=== PATIENT | female | born 1980 | race Asian ===

== ENCOUNTER 2017-03-14 11:00 | Inpatient (IN) | payer BC ==
[2017-03-14] VITALS (12 sets, daily range): BP systolic 131–146; BP diastolic 65–87; PULSE 69–100; RESP 16–18; TEMP 97.6–99.2; O2SAT 100
[2017-03-14] MEDS ORDERED: LACTATED RINGER'S 1000 ML INJ 1,000 ML IV ONE (12:02)
[2017-03-14 12:09] LABS: AUTOMATED NEUTROPHIL # 6.6 TH/MM3 (1.8-7.7); BASOPHIL % 0.2 % (0.0-2.0); EOSINOPHIL # 0.1 TH/MM3 (0-0.4); EOSINOPHIL % 0.7 % (0.0-4.0); HEMO FLAGS DIFF FINAL; LYMPH % 16.5 % (9.0-44.0); LYMPHOCYTE # 1.4 TH/MM3 (1.0-4.8); MEAN CELL VOLUME 75.3 FL (80.0-100.0); MEAN CORPUSCULAR HEMOGLOBIN 24.7 PG (27.0-34.0); MEAN CORPUSCULAR HGB CONC 32.8 % (32.0-36.0); MONO % 7.4 % (0.0-8.0); NEUT % 75.2 % (16.0-70.0); PLATELET COUNT 274 TH/MM3 (150-450); RED BLOOD COUNT 5.18 MIL/MM3 (4.00-5.30); RED CELL DISTRIBUTION WIDTH 15.5 % (11.6-17.2); WHITE BLOOD COUNT 8.7 TH/MM3 (4.0-11.0)
[2017-03-14] MEDS ORDERED: MORPHINE SULFATE PF 5 MG/10 ML VIAL ONE (12:21)
[2017-03-14] MEDS ORDERED: ONDANSETRON HCL 4 MG/2 ML VIAL ONE (12:21)
[2017-03-14] MEDS ORDERED: OXYTOCIN 10 UNIT/ML AMP ONE (12:22)
[2017-03-14 12:24] LABS: BACTERIA, URINE RARE /hpf; BLOOD, URINE NEG (NEG); COMMENT (UR) CULT NOT INDICATED; CULTURE IF INDICATED CULT NOT INDICATED; GLUCOSE,URINE NEG (NEG); KETONE, URINE NEG (NEG); MUCUS URINE FEW /lpf (OCC); NITRITE,URINE NEG (NEG); SQUAMOUS EPITHELIAL CELL URINE 1 /hpf (0-5); URINE COLOR LIGHT-YELLOW (YELLW/STRAW)
[2017-03-14] MEDS ORDERED: LACTATED RINGER'S 1000 ML INJ 1,000 ML IV SCH ×2 (12:32→18:52)
[2017-03-14] MEDS ORDERED: DICLOFENAC SODIUM 37.5 MG/ML VIAL IV PUSH ONE (13:21)
[2017-03-14] MEDS ORDERED: CITRIC ACID-SODIUM CITRATE LIQ 30 ML UDC PO SCH (13:45)
[2017-03-14] MEDS ORDERED: SIMETHICONE 80 MG CHEWABLE TAB PO PRN (14:00)
[2017-03-14] MEDS ORDERED: oxyCODONE/ACETAMINOPHEN 5 MG/325 MG TAB PO PRN (14:00)
[2017-03-14] MEDS ORDERED: OXYTOCIN 30 UNITS-500ML PREMIX 500 ML IV ONE (14:00)
[2017-03-14] MEDS ORDERED: ZOLPIDEM TARTRATE 5 MG TAB PO PRN (14:00)
[2017-03-14] MEDS ORDERED: ACETAMINOPHEN 1000 MG/100 ML VIAL IV ONE ×2 (14:00→14:49)
[2017-03-14] MEDS ORDERED: ACETAMINOPHEN 325 MG TAB PO PRN (14:00)
[2017-03-14] MEDS ORDERED: SODIUM CHLORIDE 0.9% FLUSH 10 ML FLUSH IV FLUSH PRN (14:00)
[2017-03-14] MEDS ORDERED: OXYTOCIN 30 UNITS-500ML PREMIX 500 ML ONE (14:44)
[2017-03-14] MEDS ORDERED: EPIDURAL-NALOXONE HCL 0.4 MG/ML AMP IV PRN (16:30)
[2017-03-14] MEDS ORDERED: EPIDURAL-DIPHENHYDRAMINE HCL 50 MG CAP PO PRN (16:30)
[2017-03-14] MEDS ORDERED: EPIDURAL-NO SYSTEMIC NARCOTICS PRN (16:30)
[2017-03-14] MEDS ORDERED: EPIDURAL-DIPHENHYDRAMINE HCL 50 MG/ML VIAL IV PUSH PRN (16:30)
[2017-03-14] MEDS ORDERED: EPIDURAL-DO NOT ADMINISTER ANTICOAGULANTS PRN (16:30)
[2017-03-14] MEDS: ONDANSETRON HCL 4 MG/2 ML VIAL IV PUSH PRN (18:44)
[2017-03-14] MEDS: DICLOFENAC SODIUM 37.5 MG/ML VIAL IV PUSH SCH (18:45)
[2017-03-14] MEDS ORDERED: SODIUM CHLORIDE 0.9% FLUSH 10 ML FLUSH IV FLUSH SCH (21:00)
[2017-03-15] MEDS ORDERED: OXYTOCIN 30 UNITS-500ML PREMIX 500 ML IV PRN
[2017-03-15 00:09] VITALS: BP 119/71; PULSE 68; RESP 16; TEMP 98.7
[2017-03-15] MEDS: DICLOFENAC SODIUM 37.5 MG/ML VIAL IV PUSH SCH ×2 (00:50→06:26)
[2017-03-15] MEDS: ONDANSETRON HCL 4 MG/2 ML VIAL IV PUSH PRN (00:50)
[2017-03-15 04:00] VITALS: BP 119/68; PULSE 82; RESP 14; TEMP 98.1
[2017-03-15 06:02] LABS: AUTOMATED NEUTROPHIL # 12.4 TH/MM3 (1.8-7.7); BASOPHIL % 0.1 % (0.0-2.0); EOSINOPHIL % 0.2 % (0.0-4.0); HEMATOCRIT 33.4 % (35.0-46.0); HEMO FLAGS DIFF FINAL; LYMPH % 10.8 % (9.0-44.0); LYMPHOCYTE # 1.6 TH/MM3 (1.0-4.8); MEAN CELL VOLUME 75.8 FL (80.0-100.0); MEAN CORPUSCULAR HEMOGLOBIN 24.5 PG (27.0-34.0); MEAN CORPUSCULAR HGB CONC 32.3 % (32.0-36.0); MONO % 4.5 % (0.0-8.0); NEUT % 84.4 % (16.0-70.0); PLATELET COUNT 225 TH/MM3 (150-450); RED CELL DISTRIBUTION WIDTH 15.3 % (11.6-17.2); WHITE BLOOD COUNT 14.7 TH/MM3 (4.0-11.0)
[2017-03-15 08:05] VITALS: BP 142/90; PULSE 97; RESP 18; TEMP 98.4
--- NOTE | 2017-03-15 08:05 | MP ---
cc: Cinthya EPPS DATE OF SURGERY: 03/14/17 PREOPERATIVE DIAGNOSIS 1. Intrauterine at 39-4 2. Spontaneous rupture of membranes with the cervix open 2-3 cm. 3. Transverse lie. POSTOPERATIVE DIAGNOSIS 1. Intrauterine at 39-4 2. Spontaneous rupture of membranes with the cervix open 2-3 cm. 3. Transverse lie. PROCEDURE Primary low transverse section. ANESTHESIA Spinal SURGEON MD Fidelina Gutierrez MD, R3 FINDINGS A normal female infant, Apgars 8 and 9 with a weight of 6 pounds 9 ounces. The baby was transverse lie with the head to the maternal right. It was easily pulled down to the vertex position once we were in the uterine cavity. The uterus was widely spaced fundus with the left side being a little bit larger than the right. There was no septum on the inside of the uterus, but it looked like a bicornuate uterus. The fallopian tubes were normal in length and caliber. The ovaries were normal size, shape and consistency. Along the entire back of the uterus, there was scarring from uncertain etiology. We cleaned this area out and decided not to take a biopsy because I was concerned about her bleeding and wanted to elucidate further the nature of this scar tissue, however, I did not see any endometriosis. The right ovary was fairly well encased in adhesions. They were mostly flimsy. COMPLICATIONS None. COUNTS Correct. ESTIMATED BLOOD LOSS 500 mL FLUIDS Crystalloids. DISPOSITION The patient tolerated the procedure well and went to recovery room in good condition. PROCEDURE IN DETAIL The patient was taken to the operating room identified by name band and verbally given a spinal anesthetic and then prepped and draped in the usual sterile fashion with a Ledesma catheter for section. The time-out was taken. A Pfannenstiel incision was made, carried down to the fascia. The fascia was taken off the rectus muscle by blunt and sharp dissection without difficulty. The peritoneum was entered under direct vision. The abdomen was without difficulty. The lower uterine segment was not well-developed at all and, after a bladder flap had been created, we made a transverse incision along the lower uterine segment, took it down until the uterine cavity was entered. Once the uterine cavity was entered, we opened up that incision with the surgeon's fingers and the vertex was off to the patient's right. We manually grabbed the vertex and moved it to the central portion of the pelvis while pushing the upper portion the opposite way. This brought the baby into the vertex position and, with gentle fundal pressure, was easily delivered. The mouth and hypopharynx were suctioned. The remainder of the was delivered and the cord clamping was delayed 45 seconds. At this point, cord was doubly clamped and cut and the was handed to the resuscitation team present. The placenta was delivered manually and the uterus was curettaged twice with a wet lap with particular attention to ensure that there was no Septa on this oddly formed uterus. At this point, the uterine incision was repaired with a 0 Vicryl in a running locking fashion with two layers. The second layer imbricating the first. The cul-de-sac and gutters were cleaned of blood and debris and irrigation was used. At this time, we noticed quite a bit of scarring. It kind of looked like endometriosis of peritoneal windows but the peritoneum was not flush on the back side of the uterus. At this point, we decided to go ahead and deliver the uterus back into the abdomen and clean the gutters of blood and debris. The peritoneum and rectus muscles were reapproximated with 0 Vicryl in a running fashion from superior to inferior. The fascia was repaired with 0 Vicryl and the subcu repaired with 3-0 Vicryl. Skin was repaired with 4-0 Monocryl in a subcuticular fashion. She tolerated procedure well and went to recovery room in good condition. R. MD KAREN Kruse/ /1:55 PM /8:04 AM
--- NOTE | 2017-03-15 08:10 | HHI.OB ---
Subjective Post Operative Day: 1 Remarks Doing well, pain is controlled. Bleeding is fine. Taking motrin and percocet Baby is doing well, Objective Vitals/I&O Vital Signs Date Time Temp Pulse Resp B/P Pulse Ox O2 Delivery O2 Flow Rate FiO2 03/15/17 04:00 82 119/68 03/15/17 04:00 98.1 14 03/15/17 00:09 98.7 68 16 119/71 03/14/17 19:40 98.9 91 18 131/78 03/14/17 16:06 98.2 86 18 142/73 03/14/17 15:30 18 03/14/17 15:25 100 16 144/77 03/14/17 15:25 98.3 100 03/14/17 15:05 85 16 146/76 100 03/14/17 14:55 69 16 135/72 100 03/14/17 14:30 75 16 144/68 100 03/14/17 14:18 76 16 133/87 100 03/14/17 13:57 100 03/14/17 13:56 80 132/65 03/14/17 13:56 97.6 16 03/14/17 12:04 99.2 18 03/14/17 12:01 100 146/85 Result Diagram: 03/15/17 0452 Objective Remarks GENERAL: Well-nourished, well-developed patient. CARDIOVASCULAR: Regular rate and rhythm without murmurs, gallops, or rubs. RESPIRATORY: Breath sounds equal bilaterally. No accessory muscle use. ABDOMEN/GI: Abdomen soft, non-tender, bowel sounds present. Incision: Clean, dry and intact. Fundus: Firm, non-tender at umbilicus. GENITOURINARY: Light to moderate bleeding. EXTREMITIES: No cyanosis or edema, non-tender, without signs of DVT. Medications and IVs Current Medications Medications (Trade) Dose Ordered Sig/Meek Route Start Time Stop Time Status Last Admin (Lr 1000 ml Inj) 1,000 ml @ 100 mls/hr Q10H IV 03/14/17 18:52 03/15/17 14:51 03/14/17 18:45 (NS Flush) 2 ml BID IV FLUSH 03/14/17 21:00 (NS Flush) 2 ml UNSCH PRN IV FLUSH 03/14/17 14:00 (Mylicon Chew) 80 mg QID PRN PO 03/14/17 14:00 (Tylenol) 650 mg Q6H PRN PO 03/14/17 14:00 (Motrin) 600 mg Q6H PRN PO 03/14/17 14:00 (Percocet 5-325 Mg) 1 tab Q4H PRN PO 03/14/17 14:00 (Percocet 5-325 Mg) 2 tab Q4H PRN PO 03/14/17 14:00 (Grace-Colace) 2 tab Q12HR PRN PO 03/14/17 14:00 (Ambien) 5 mg HS PRN PO 03/14/17 14:00 (M-M-R Ii Inj) 0.5 ml ONCE ONCE SQ 03/15/17 16:00 03/15/17 16:01 (Boostrix Inj) 0.5 ml ONCE ONCE IM 03/15/17 16:00 03/15/17 16:01 (Zofran Inj) 4 mg Q6H PRN IV PUSH 03/14/17 18:00 03/15/17 00:50 Miscellaneous Information NO SYSTEMIC NARCOTICS TO BE GIVEN FO... UNSCH PRN .XX 03/14/17 16:30 03/15/17 16:29 (Narcan Inj) 0.4 mg UNSCH PRN IV 03/14/17 16:30 03/15/17 16:29 (Benadryl Inj) 25 mg Q6H PRN IV PUSH 03/14/17 16:30 03/15/17 16:29 (Benadryl) 50 mg Q6H PRN PO 03/14/17 16:30 03/15/17 16:29 Miscellaneous Information ALL NURSING DEPARTMENTS UNSCH PRN .XX 03/14/17 16:30 03/15/17 16:29 Assessment/Plan Assessment and Plan POD #1 Doing well after c/s. for transverse lie Routine care. Cinthya Suarez MD Mar 15, 2017 08:10
[2017-03-15] MEDS ORDERED: OXYC1TAB63 PO (08:11)
[2017-03-15] MEDS ORDERED: IBUP-232 PO (08:11)
--- NOTE | 2017-03-15 09:12 | HHI.DCPOC ---
Discharge Care Plan Diagnosis: (1) S/P primary low transverse (2) Anemia Your Health Problems Are: delivery Report Symptoms to Your Doctor -Temperature above 100.5 degrees -Redness, of incision or excessive or foul smelling drainage -Unusual pain or calf pain -Increased vaginal bleeding -Painful or difficulty urinating -Feelings of extreme sadness or anxiety after 2 weeks Goals to Promote Your Health * To prevent worsening of your condition and complications * To maintain your health at the optimal level Directions to Meet Your Goals Take your medications as prescribed Follow your dietary instruction Follow activity as directed Ensure plenty of rest for recovery Drink fluids for hydration Keep your appointments as scheduled Take your immunizations and boosters as scheduled If your symptoms worsen call your PCP, if no PCP go to Urgent Care Center or Emergency Room Smoking is Dangerous to Your Health. Avoid second hand smoke Call the 24-hour crisis hotline for domestic abuse at [place] Dawn Mar 15, 2017 09:12
[2017-03-15] MEDS: DOCUSATE SODIUM 50 MG/SENNA 8.6 MG TAB PO PRN (12:01)
[2017-03-15] MEDS: IBUPROFEN 600 MG TAB PO PRN ×2 (12:01→17:48)
[2017-03-15] MEDS: oxyCODONE/ACETAMINOPHEN 5 MG/325 MG TAB PO PRN ×2 (12:02→17:49)
[2017-03-15] MEDS ORDERED: DIPHTH/TETANUS/ACEL PERTUSSIS (BOOSTER) 0.5 ML VIAL/PFS IM ONE (16:00)
[2017-03-15] MEDS ORDERED: MEASLES, MUMPS, RUBELLA VACCINE 0.5 ML VIAL SQ ONE (16:00)
[2017-03-15 19:50] VITALS: BP 131/83; PULSE 103; RESP 16; TEMP 97
[2017-03-16] MEDS: IBUPROFEN 600 MG TAB PO PRN ×4 (00:08→18:16)
[2017-03-16] MEDS: oxyCODONE/ACETAMINOPHEN 5 MG/325 MG TAB PO PRN ×4 (00:08→18:16)
[2017-03-16 08:20] VITALS: BP 138/94; PULSE 90; RESP 16; TEMP 98.1
--- NOTE | 2017-03-16 10:51 | HHI.OB ---
Subjective Post Operative Day: 2 Remarks POD#2, Stable ,doing well Objective Vitals/I&O Vital Signs Date Time Temp Pulse Resp B/P Pulse Ox O2 Delivery O2 Flow Rate FiO2 03/16/17 08:20 98.1 90 16 138/94 03/15/17 19:50 97.0 103 16 131/83 Result Diagram: 03/15/17 0452 Objective Remarks GENERAL: Well-nourished, well-developed patient. CARDIOVASCULAR: Regular rate and rhythm without murmurs, gallops, or rubs. RESPIRATORY: Breath sounds equal bilaterally. No accessory muscle use. ABDOMEN/GI: Abdomen soft, non-tender, bowel sounds present. Incision: Clean, dry and intact. Fundus: Firm, non-tender at umbilicus. GENITOURINARY: Light to moderate bleeding. EXTREMITIES: No cyanosis or edema, non-tender, without signs of DVT. Medications and IVs Current Medications Medications (Trade) Dose Ordered Sig/Meek Route Start Time Stop Time Status Last Admin (NS Flush) 2 ml BID IV FLUSH 03/14/17 21:00 (NS Flush) 2 ml UNSCH PRN IV FLUSH 03/14/17 14:00 (Mylicon Chew) 80 mg QID PRN PO 03/14/17 14:00 (Tylenol) 650 mg Q6H PRN PO 03/14/17 14:00 (Motrin) 600 mg Q6H PRN PO 03/14/17 14:00 03/16/17 06:11 (Percocet 5-325 Mg) 1 tab Q4H PRN PO 03/14/17 14:00 (Percocet 5-325 Mg) 2 tab Q4H PRN PO 03/14/17 14:00 03/16/17 06:11 (Grace-Colace) 2 tab Q12HR PRN PO 03/14/17 14:00 03/15/17 12:01 (Ambien) 5 mg HS PRN PO 03/14/17 14:00 (Zofran Inj) 4 mg Q6H PRN IV PUSH 03/14/17 18:00 03/15/17 00:50 Assessment/Plan Assessment and Plan POD #2 Doing well after c/s. for transverse lie Routine care. Discharge Planning Routine POD#3 Yaw Hodgson MD Mar 16, 2017 10:51
[2017-03-16] MEDS: DOCUSATE SODIUM 50 MG/SENNA 8.6 MG TAB PO PRN (12:19)
[2017-03-16 20:00] VITALS: BP 124/76; PULSE 86; RESP 18; TEMP 98.3
[2017-03-17] MEDS: oxyCODONE/ACETAMINOPHEN 5 MG/325 MG TAB PO PRN ×3 (00:37→13:09)
[2017-03-17] MEDS: IBUPROFEN 600 MG TAB PO PRN ×3 (00:37→13:09)
[2017-03-17 07:29] VITALS: BP 141/90; PULSE 105; RESP 18; TEMP 97.7
--- NOTE | 2017-03-17 11:07 | HHI.OB ---
Subjective Post Operative Day: 3 Remarks POD#3; Doing well, plan discharge for today Objective Vitals/I&O Vital Signs Date Time Temp Pulse Resp B/P Pulse Ox O2 Delivery O2 Flow Rate FiO2 03/17/17 07:29 97.7 105 18 141/90 03/16/17 20:00 98.3 86 18 124/76 Result Diagram: 03/15/17 0452 Objective Remarks GENERAL: Well-nourished, well-developed patient. CARDIOVASCULAR: Regular rate and rhythm without murmurs, gallops, or rubs. RESPIRATORY: Breath sounds equal bilaterally. No accessory muscle use. ABDOMEN/GI: Abdomen soft, non-tender, bowel sounds present. Incision: Clean, dry and intact. Fundus: Firm, non-tender at umbilicus. GENITOURINARY: Light to moderate bleeding. EXTREMITIES: No cyanosis or edema, non-tender, without signs of DVT. Medications and IVs Current Medications Medications (Trade) Dose Ordered Sig/Meek Route Start Time Stop Time Status Last Admin (NS Flush) 2 ml BID IV FLUSH 03/14/17 21:00 (NS Flush) 2 ml UNSCH PRN IV FLUSH 03/14/17 14:00 (Mylicon Chew) 80 mg QID PRN PO 03/14/17 14:00 (Tylenol) 650 mg Q6H PRN PO 03/14/17 14:00 (Motrin) 600 mg Q6H PRN PO 03/14/17 14:00 03/17/17 06:43 (Percocet 5-325 Mg) 1 tab Q4H PRN PO 03/14/17 14:00 (Percocet 5-325 Mg) 2 tab Q4H PRN PO 03/14/17 14:00 03/17/17 06:43 (Grace-Colace) 2 tab Q12HR PRN PO 03/14/17 14:00 03/16/17 12:19 (Ambien) 5 mg HS PRN PO 03/14/17 14:00 (Zofran Inj) 4 mg Q6H PRN IV PUSH 03/14/17 18:00 03/15/17 00:50 Assessment/Plan Assessment and Plan POD #3 Doing well after c/s. for transverse lie Routine care. Discharge Planning Routine POD#3 Attending Attestation seen by Yaw Farmer MD Mar 17, 2017 11:07
[2017-03-17] MEDS: DOCUSATE SODIUM 50 MG/SENNA 8.6 MG TAB PO PRN (13:08)
== END 2017-03-17 17:14 | disposition home or self-care (01) | DRG 766 ==
LOC: H2EB 11:00 → H1EA 15:53
PROVIDERS: ADMIT Obstetrics & Gynecology; ATTEND Obstetrics & Gynecology
PROC: 10D00Z1 Extraction of Products of Conception, Low, Open Approach (ICD-10-PCS; principal; 2017-03-14)
DX: O32.2XX0 Maternal care for transverse and oblique lie, not applicable or unspecified (principal); O90.81 Anemia of the puerperium; Z37.0 Single live birth; Z3A.39 39 weeks gestation of pregnancy
CPT/HCPCS: 59025; 81001; 85025; 86850; 86900; 86901; J0131; J0690; J1130; J2274; J2405; J2590; J7120